=== PATIENT | male | born 1985 | race Caucasian/White ===

== ENCOUNTER 2016-10-20 00:09 | Emergency (ER) | payer OTHER ==
[~2016-10-20] VITALS: Ht 170.2 cm; Wt 245.0 kg
[~2016-10-20 00:09] MED LIST: AMOX875T PO; FLUT1SPR9 EACH NARE; MAGICADU2 SWISH-SWAL; PRED20 PO; VENTAER INH
[2016-10-20 00:11] VITALS: BP 152/78; PULSE 60; RESP 16; TEMP 98.3; O2SAT 98
--- NOTE | 2016-10-20 00:44 | PD ---
HPI Chief Complaint: Injury Time Seen by Provider: 00:33 Travel History International Travel<30 days: No Contact w/Intl Traveler<30days: No Traveled to known affect area: No History of Present Illness HPI Patient is a 31-year-old male presenting to emergency department for evaluation of right ankle pain. Patient was playing basketball yesterday when he rolled his ankle. Patient states she's been unable to bear weight due to the pain. He denies any numbness or tingling but states it's aching and throbbing in reports his pain is a 7 out of 10. Patient is not taking any medication to alleviate the pain. There are no alleviating factors. PFSH Past Medical History Asthma: Yes Diminished Hearing: No Respiratory: Yes (asthma) Tetanus Vaccination: < 5 Years Influenza Vaccination: No Past Surgical History Surgical History: No Previous Surgery Social History Alcohol Use: No Tobacco Use: No Substance Use: No Allergies-Medications (Allergen,Severity, Reaction): Coded Allergies: No Known Allergies (Verified , 10/20/16) Reported Meds & Prescriptions Reported Meds & Active Scripts Active Ventolin Hfa 18 GM Inh (Albuterol Sulfate) 90 Mcg/Act Aer 2 Puff INH Q4-6H PRN Review of Systems Except as stated in HPI: all other systems reviewed are Neg Musculoskeletal: Positive: Myalgias, Arthralgias, Edema, Pain Skin: Positive Change in Pigmentation Physical Exam Narrative GENERAL: Well-developed, well-nourished, alert male, resting comfortably in no acute distress. SKIN: Warm and dry. HEAD: Normocephalic. EYES: No scleral icterus. No injection or drainage. NECK: Supple, trachea midline. No JVD or lymphadenopathy. CARDIOVASCULAR: Regular rate and rhythm without murmurs, gallops, or rubs. RESPIRATORY: Breath sounds equal bilaterally. No accessory muscle use. GASTROINTESTINAL: Abdomen soft, non-tender, nondistended. MUSCULOSKELETAL: No cyanosis, edema and ecchymosis to lateral aspect of right ankle and foot. Decreased range of motion with flexion and extension. 2+ dorsalis pedis pulse. Brisk less than 3 second capillary refill. BACK: Nontender without obvious deformity. No CVA tenderness. Data Data Last Documented VS Vital Signs Date Time Temp Pulse Resp B/P (MAP) Pulse Ox O2 Delivery O2 Flow Rate FiO2 10/20/16 00:20 Room Air 10/20/16 00:11 98.3 60 16 152/78 (102) 98 Orders Orders Ankle, Complete ([id number]) (10/20/16 ) Ketorolac Inj (Toradol Inj) (10/20/16 00:45) Crutches (10/20/16 01:03) Pete Bandage (10/20/16 01:03) MDM Medical Decision Making Medical Screen Exam Complete: Yes Emergency Medical Condition: Yes Interpretation(s) Vital Signs Date Time Temp Pulse Resp B/P (MAP) Pulse Ox O2 Delivery O2 Flow Rate FiO2 10/20/16 00:20 Room Air 10/20/16 00:11 98.3 60 16 152/78 (102) 98 Differential Diagnosis Fracture versus sprain versus strain versus contusion versus other Narrative Course Patient is a 31-year-old male presenting for evaluation of right lateral ankle pain after rolling it playing basketball yesterday. Patient's vital signs are stable, he is neurovascularly intact. Imaging ordered and pending. Patient given Toradol and Norflex for pain. X-ray shows no acute abnormalities. Patient will be placed in an Pete wrap and given crutches for support. He is encouraged to maintain nonweightbearing until pain improves, increasing as tolerated. Patient is encouraged to rest, ice, elevate extremity. He is encouraged follow-up with his primary doctor. He is encouraged to return to emergency department for any new or worsening symptoms. Patient verbalized understanding of instructions. Patient is stable for discharge. Diagnosis Primary Impression: Ankle sprain Qualified Codes: S93.401A - Sprain of unspecified ligament of right ankle, initial encounter Referrals: Orthopaedic Surgeon 1 week Primary Care Physician 1 week Patient Instructions: General Instructions Additional Instructions: Rest, ice, elevate extremity Use crutches, increased weightbearing as tolerated Take medications as directed Return to emergency department for any new or worsening symptoms Follow-up with her primary doctor and/or orthopedic surgeon Med/Other Pt SpecificInfo: Prescription(s) given Scripts Cyclobenzaprine (Flexeril) 10 Mg Tab 10 MG PO TID Y for MUSCLE SPASM, #21 TAB 0 Refills Prov: Gerda Mckeon 10/20/16 Ibuprofen (Ibuprofen) 800 Mg Tab 800 MG PO Q6HR Y for PAIN, #40 TAB 0 Refills Prov: Gerda Mckeon 10/20/16 Disposition: 01 DISCHARGE HOME Condition: Stable Gerda Mckeon Oct 20, 2016 00:44
[2016-10-20] MEDS ORDERED: KETOROLAC TROMETHAMINE 60 MG/2 ML (IM) VIAL IM ONE (00:45)
--- NOTE | 2016-10-20 00:55 | RADRPT ---
EXAM DATE/TIME: 10/20/2016 00:49 [facility] COMPARISON: No previous studies available for comparison. INDICATIONS : Rolled ankle playing basketball on wednesday brusing and swelling to lateral ankle. MEDICAL HISTORY : None. SURGICAL HISTORY : None. ENCOUNTER: Initial ACUITY: 1 day PAIN SCORE: 10/10 LOCATION: Right ankle FINDINGS: Three view exam was performed of the right ankle. The bony structures are in normal alignment. Mild soft tissue swelling overlying the lateral malleolus. No evidence of fracture, or dislocation. The a nkle mortise is intact. No radiopaque foreign bodies are seen. Bony mineralization is normal. CONCLUSION: 1. No acute fracture or dislocation. Med Chapa MD on October 20, 2016 at 0:53 Board Certified Radiologist. This report was verified electronically.
[2016-10-20] MEDS ORDERED: CYCL1TAB29 PO (01:09)
[2016-10-20] MEDS ORDERED: IBUP800T23 PO (01:09)
== END 2016-10-20 01:51 | disposition home or self-care (01) ==
LOC: NEPD 00:09
DX: S93.401A Sprain of unspecified ligament of right ankle, initial encounter (principal); J45.909 Unspecified asthma, uncomplicated; X50.1XXA Overexertion from prolonged static or awkward postures, initial encounter; Y93.67 Activity, basketball; Z79.899 Other long term (current) drug therapy
CPT/HCPCS: 73610; 96372; 99283; E0113; J1885